=== PATIENT | female | born 1970 | race Caucasian/White ===

== ENCOUNTER 2017-10-27 08:09 | Outpatient (CLI) | payer BC | END 2017-10-27 08:10 | disposition home or self-care (01) | LOC: BICMAMMO 08:09 | PROVIDERS: ATTEND Obstetrics & Gynecology | DX: Z12.31 Encounter for screening mammogram for malignant neoplasm of breast (principal); Z80.3 Family history of malignant neoplasm of breast | CPT/HCPCS: 77063; 77067 ==

== ENCOUNTER 2017-11-07 09:38 | Outpatient (CLI) | payer BC | END 2017-11-07 09:39 | disposition home or self-care (01) | LOC: BICCT 09:38 | PROVIDERS: ATTEND Internal Medicine Interventional Cardiology | DX: R07.2 Precordial pain (principal); I25.10 Atherosclerotic heart disease of native coronary artery without angina pectoris | CPT/HCPCS: 75574 ==